=== PATIENT | male | born 1965 | race Caucasian/White ===

== ENCOUNTER 2023-04-26 06:49 | Day surgery (SDC) | payer MEDICAID ==
[~2023-04-26] VITALS: Ht 160 cm; Wt 77.1 kg
[2023-04-26] MEDS ORDERED: MIDAZOLAM HCL 5 MG/5 ML VIAL ONE (07:26)
[2023-04-26] MEDS ORDERED: fentaNYL CITRATE/PF 100 MCG/2 ML AMP ONE (07:26)
[2023-04-26] MEDS ORDERED: SIMETHICONE 40 MG/0.6 ML ML ONE (07:27)
[2023-04-26 07:36] VITALS: O2SAT 97
[2023-04-26 12:40] VITALS: BP_SYST 115; PULSE 55; RESP 14; TEMP 98
== END 2023-04-26 08:47 | disposition home or self-care (01) ==
LOC: SDS 06:49 → SMU 06:50 → SDS 08:47
PROVIDERS: ATTEND Internal Medicine
DX: Z12.11 Encounter for screening for malignant neoplasm of colon (principal); D12.2 Benign neoplasm of ascending colon; E78.5 Hyperlipidemia, unspecified; K64.8 Other hemorrhoids; Z79.899 Other long term (current) drug therapy
CPT/HCPCS: 45385; 88305; 99152; G0378; J2250; J3010